=== PATIENT | male | born 1980 | race Caucasian/White ===

== ENCOUNTER 2020-08-28 11:01 | Emergency (ER) | payer OTHER ==
[~2020-08-28] VITALS: Ht 170.2 cm; Wt 74.8 kg
[2020-08-28] MEDS ORDERED: LIDOCAINE/EPI/TETRACAINE TOPICAL GEL 3 ML. TP ONE ×3 (11:30→12:30)
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
[2020-08-28] MEDS ORDERED: LIDOCAINE 1% Multi-Dose 20 ML VIAL. IJ ONE (13:30)
[2020-08-28] MEDS ORDERED: HYDROcodone/APAP 5/325MG 1 TAB TABLET PO ONE (15:30)
[2020-08-28] MEDS ORDERED: AMOXICILLIN/K CLAV 875/125MG TABLET. PO ONE (15:30)
[2020-08-28] MEDS ORDERED: HYDR-2155 PO (15:44)
[2020-08-28] MEDS ORDERED: AMOX1TAB61 PO (15:44)
[2020-08-28 16:20] VITALS: BP 118/63
== END 2020-08-28 16:20 | disposition home or self-care (01) ==
LOC: ER 11:01
DX: S02.85XA Fracture of orbit, unspecified, initial encounter for closed fracture (principal); S02.2XXA Fracture of nasal bones, initial encounter for closed fracture; S01.112A Laceration without foreign body of left eyelid and periocular area, initial encounter; Z88.2 Allergy status to sulfonamides; Y08.89XA Assault by other specified means, initial encounter; Y93.89 Activity, other specified; Y92.89 Other specified places as the place of occurrence of the external cause; Y99.8 Other external cause status
CPT/HCPCS: 12013; 70450; 70486; 71250; 72125; 74176; 96374; 99285; J3010